=== PATIENT | male | born 1990 | race Caucasian/White ===

== ENCOUNTER 2018-12-08 17:23 | Emergency (ER) | payer MEDICAID, OTHER ==
[~2018-12-08] VITALS: Ht 167.6 cm; Wt 70.0 kg
[~2018-12-08 17:23] MED LIST: ALPR2TAB PO; BUPR100T6 PO; ZOLP5TAB PO
[2018-12-08 17:37] VITALS: Ht 167.6 cm; Wt 70.0 kg
[2018-12-08] MEDS ORDERED: SOD CHLORIDE 0.9% 1,000 ML IV STA ×2 (17:49→19:25)
[2018-12-08] MEDS ORDERED: LORAZEPAM 2 MG INJ IV ONE (19:30)
--- NOTE | 2018-12-08 23:14 | ERD ---
ER Documentation Chief Complaint Chief Complaint smoked meth 30 min ago feels anxious HPI 28 year old male presenting by ambulance complaining of anxiety after he smoked meth about 30 minutes prior. Denies any chest pain or shortness of breath. He does complain of palpitations. He denies any other drug use. No other complaints ROS All systems reviewed and are negative except as per history of present illness. Medications Home Meds Reported Medications Alprazolam* (Xanax*) 2 Mg Tablet, 2 MG PO DAILY 01/07/13 Bupropion Hcl* (Wellbutrin*) 100 Mg Tablet, 100 MG PO DAILY 01/07/13 Zolpidem Tartrate* (Ambien*) 5 Mg Tablet, 5 MG PO HS 06/01/11 Allergies Allergies: Coded Allergies: No Known Allergies (Verified Allergy, Mild, 06/01/11) PMhx/Soc Hx Psychiatric Problems: Yes (BIPOLAR, ANXIETY) Hx Miscellaneous Medical Probl: Yes (HX OF 5150) Hx Alcohol Use: Yes (1 BEER, 2 HOURS AGO) Hx Substance Use: Yes (Methamphetamine abuse, IV drugs) Hx Tobacco Use: No FmHx Family History: No diabetes Physical Exam Vitals Vital Signs Date Temp Pulse Resp B/P (MAP) Pulse Ox O2 O2 Flow FiO2 Time Delivery Rate 12/08/18 135 14 138/96 98 Room Air 22:51 (110) 12/08/18 138 20 126/84 100 Room Air 21:01 (98) 12/08/18 99.0 133 15 112/93 100 Room Air 19:01 (99) 12/08/18 99.0 149 20 156/113 100 17:37 (127) Physical Exam Const: Appears anxious, no diaphoresis, no distress Head: Atraumatic Eyes: Normal Conjunctiva ENT: Normal External Ears, Nose and Mouth. Neck: Full range of motion. No meningismus. Resp: Clear to auscultation bilaterally Cardio: Tachycardic with regular rhythm, no murmurs. 2+ distal pulses Abd: Soft, non tender, non distended. Normal bowel sounds Skin: No petechiae or rashes Back: No midline or flank tenderness Ext: No cyanosis, or edema Neur: Awake and alert, normal speech, no facial asymmetry, moving all extremities Psych: Anxious. No SI or HI. No hallucinations Results 24 hrs Current Medications Medications Dose Sig/Tete Start Time Status Last (Trade) Ordered Route PRN Stop Time Admin Dose Reason Admin Sodium 1,000 ml @ Q1H STAT 12/08/18 DC 12/08/18 Chloride 1,000 mls/hr IV 17:49 17:56 12/08/18 18:48 Lorazepam 2 mg ONCE ONCE 12/08/18 DC 12/08/18 (Ativan) IV 19:30 19:37 12/08/18 19:31 Sodium 1,000 ml @ Q1H STAT 12/08/18 DC 12/08/18 Chloride 1,000 mls/hr IV 19:25 19:37 12/08/18 20:24 Procedures/MDM EMERGENT LABS AND DIAGNOSTIC STUDIES: 12-lead EKG was interpreted by Santi Diaz MD: Sinus tachycardia at 143 bpm Normal axis Normal intervals No acute ST or T wave changes suggestive of acute ischemia or STEMI. Initial Nursing notes reviewed. Previous Medical Records requested via the Electronic Health Record. EMERGENCY DEPARTMENT COURSE / MEDICAL DECISION MAKING: Patients presented with anxiety. Vitals were notable for tachycardia. Patient was maintaining airway. Based on EMS report and exam, patients symptoms are likely related to alcohol or drug intoxication. I have a low suspicion for serious metabolic or electrolyte derangement, intracranial hemorrhage, acute infectious process, meningitis/encephalitis, or CVA. Patient was observed for several hours in the ER with serial examinations and mental status evaluations. He was given 2 L of IV fluids as well as a total of 4 mg of IV Ativan. The patients symptoms have not completely resolved and he is not yet safe for discharge. To be low suspicion for sepsis, acute heart failure, acute coronary syndrome, or other cardiac or pulmonary emergency.. Patient will continue to be observed in the department for improvement of symptoms and mental status. Patient will be signed out to the oncoming ED physician, who will reevaluate the patient and decide on final disposition. Departure Diagnosis: Primary Impression: Amphetamine overdose Encounter type: initial encounter Injury intent: undetermined intent Qualified Codes: T43.624A - Poisoning by amphetamines, undetermined, initial encounter Additional Impression: Tachycardia Condition: Stable Patient Instructions: Drug Abuse MICHAEL DIAZ MD Dec 08, 2018 23:14
[2018-12-09] MEDS ORDERED: MIDAZOLAM 1 MG/ML 2 ML INJ IM ONE (01:30)
[2018-12-09] MEDS ORDERED: HALOPERIDOL 5 MG INJ IM ONE (01:30)
--- NOTE | 2018-12-09 05:51 | EN ---
Date/Time of Note Date/Time of Note DATE: 12/09/18 TIME: 05:51 ER Progress Note Observation Note: Time: 4 hours Family Hx: [Negative] for diabetes Evaluation: Patient had become agitated, required chemical sedation, will require reassessment was medically sober. BRITTNEY ANGELO MD Dec 09, 2018 05:51
[2018-12-09 08:56] VITALS: BP 105/87; PULSE 109; RESP 17
== END 2018-12-09 09:18 | disposition home or self-care (01) ==
LOC: E/R 17:23
DX: T43.624A Poisoning by amphetamines, undetermined, initial encounter (principal); R00.0 Tachycardia, unspecified; R40.2142 Coma scale, eyes open, spontaneous, at arrival to emergency department; R40.2252 Coma scale, best verbal response, oriented, at arrival to emergency department; R40.2362 Coma scale, best motor response, obeys commands, at arrival to emergency department
CPT/HCPCS: 93005; J1630; J2060; J2250; J7030; Z7610; 36415; 96372; 96374